=== PATIENT | male | born 1960 | race Caucasian/White ===

== ENCOUNTER 2022-08-20 08:36 | Emergency (ER) | payer OTHER ==
[~2022-08-20] VITALS: Ht 165.1 cm; Wt 77.6 kg
[2022-08-20 08:49] VITALS: BP 153/72
[2022-08-20 10:07] LABS: INR 0.95 (0.9-1.15); Partial Thromboplastin Time 26.6 sec (24.6-33.4)
[2022-08-20 10:18] LABS: Albumin 4.2 g/dL (3.4-5.0); Calcium 8.7 mg/dL (8.5-10.1)
[2022-08-20 10:24] LABS: BUN/Creatinine Ratio 12.5; Bilirubin, Total 0.4 mg/dL (0.2-1.0)
[2022-08-20 10:33] LABS: Basophils # (auto) 0 10 ^3/uL (0-0.2); Basophils % (auto) 0.4 % (0.0-2.0); Eosinophils # (auto) 0.1 10 ^3/uL (0-0.8); Eosinophils % (auto) 1.2 % (0.0-7.0); Hematocrit 46.8 % (41.0-53.0); Lymphocytes # (auto) 1.3 10 ^3/uL (0.4-5.4); Lymphocytes % (auto) 19.8 % (10.0-50.0); Mean Corpuscular Hemoglobin 30.5 pg (28.0-32.0); Mean Corpuscular Hgb Conc. 34.3 g/dL (32.0-36.0); Mean Corpuscular Volume 88.9 fL (80.0-100.0); Monocytes # (auto) 0.5 10 ^3/uL (0-1.3); Monocytes % (auto) 7.3 % (0.0-12.0); Neutrophils # (auto) 4.7 10 ^3/uL (1.6-8.6); Neutrophils % (auto) 71.3 % (37.0-80.0); Nucleated Red Blood Cells % 0.1 %; Red Blood Cells 5.26 10^6/uL (4.5-5.90); Red Cell Distribution Width 13.4 % (11.8-14.3); White Blood Cell 6.6 10^3/uL (4.4-10.8)
[2022-08-20] MEDS ORDERED: ALUMCHW6 PO (12:53)
[2022-08-20] MEDS ORDERED: OMEP-263 PO ×2 (12:53)
[2022-08-20] MEDS ORDERED: METO-281 PO (12:53)
== END 2022-08-20 13:47 | disposition home or self-care (01) ==
LOC: ER 08:36
DX: K29.01 Acute gastritis with bleeding (principal); Z79.899 Other long term (current) drug therapy; Z87.442 Personal history of urinary calculi
CPT/HCPCS: 36415; 71045; 80053; 85025; 85610; 85730; 86850; 86900; 86901; 93005

== ENCOUNTER 2022-08-26 19:03 | Emergency (ER) | payer OTHER ==
[~2022-08-26] VITALS: Ht 167.6 cm; Wt 75.0 kg
[~2022-08-26 19:03] MED LIST: ALUMCHW6 PO; METO-281 PO; OMEP-263 PO
[2022-08-26 19:17] VITALS: BP 152/79
[2022-08-26] MEDS ORDERED: levETIRAcetam 500 MG/5ML INJ IV ONE (20:05)
[2022-08-26 20:35] LABS: Basophils # (auto) 0.1 10 ^3/uL (0-0.2); Basophils % (auto) 0.7 % (0.0-2.0); Eosinophils # (auto) 0 10 ^3/uL (0-0.8); Eosinophils % (auto) 0.3 % (0.0-7.0); Hematocrit 48.2 % (41.0-53.0); Hemoglobin 16.2 g/dL (13.5-17.5); Lymphocytes # (auto) 1.1 10 ^3/uL (0.4-5.4); Mean Corpuscular Hemoglobin 30.1 pg (28.0-32.0); Mean Corpuscular Hgb Conc. 33.7 g/dL (32.0-36.0); Mean Corpuscular Volume 89.3 fL (80.0-100.0); Monocytes # (auto) 0.6 10 ^3/uL (0-1.3); Monocytes % (auto) 6.1 % (0.0-12.0); Neutrophils # (auto) 8.8 10 ^3/uL (1.6-8.6); Neutrophils % (auto) 82.9 % (37.0-80.0); Nucleated Red Blood Cells % 0.1 %; White Blood Cell 10.6 10^3/uL (4.4-10.8)
[2022-08-26 20:51] LABS: Albumin 4.3 g/dL (3.4-5.0); Anion Gap 8 (5-15); Blood Urea Nitrogen 6 mg/dL (7-18); Carbon Dioxide 27 mmol/L (21-32); Chloride 105 mmol/L (98-107); Glucose 116 mg/dL (74-106); INR 1.02 (0.9-1.15); Magnesium 2.4 mg/dL (1.6-2.6); Partial Thromboplastin Time 23.2 sec (24.6-33.4); Potassium 3.9 mmol/L (3.5-5.1); Sodium 140 mmol/L (136-145)
[2022-08-26 20:54] LABS: Alanine Aminotransferase 33 U/L (16-61); Aspartate Aminotransferase 17 U/L (15-37); BUN/Creatinine Ratio 10.9; Blood Alcohol < 3.0 mg/dL (0-5); GFR African American 195 mL/min; GFR Non-African American 161 mL/min
[2022-08-26 20:57] LABS: Alkaline Phosphatase 55 U/L (45-117); Bilirubin, Total 0.5 mg/dL (0.2-1.0); Total Protein 6.9 g/dL (6.4-8.2)
[2022-08-27] MEDS ORDERED: KEP500T PO (00:44)
[2022-08-27] MEDS ORDERED: CEPH-510 PO (00:44)
[2022-08-27] MEDS ORDERED: BACITRACIN TOP OINT 1 UD PKG TOP ONE (00:45)
[2022-08-27] MEDS ORDERED: HYDROcodone-ACET 10/325MG TAB PO ONE (00:45)
[2022-08-27] MEDS ORDERED: CEPHALEXIN 250 MG CAP PO ONE (00:45)
== END 2022-08-27 00:55 | disposition home or self-care (01) ==
LOC: ER 19:03
DX: S01.01XA Laceration without foreign body of scalp, initial encounter (principal); R56.9 Unspecified convulsions; F17.210 Nicotine dependence, cigarettes, uncomplicated; Z20.822 Contact with and (suspected) exposure to COVID-19; Z87.442 Personal history of urinary calculi; W18.39XA Other fall on same level, initial encounter; Y93.89 Activity, other specified; Y92.89 Other specified places as the place of occurrence of the external cause; Y99.8 Other external cause status
CPT/HCPCS: 12002; 36415; 70450; 71045; 80053; 80185; 80320; 83735; 83880; 84484; 85025; 85379; 85610; 85730; 87426; 87804; 96365; 99285; J1953; J7060